=== PATIENT | female | born 1985 | race Caucasian/White ===

== ENCOUNTER 2021-12-26 12:20 | Observation (INO) ==
[2021-12-26] MEDS ORDERED: CeFAZolin Syr 2,000MG/20 ML 2,000 MG/20 ML SYRINGE IVPB ONE (12:53)
[2021-12-26] MEDS ORDERED: Ringers Solution, Lactated 1,000 ML IVC SCH (13:00)
[2021-12-26] MEDS ORDERED: Ondansetron 4 MG/2 ML VIAL IVP PRN ×2 (13:10→20:04)
[2021-12-26] MEDS ORDERED: *HR* HYDROmorphone PF 0.5 MG/0.5 ML SYRINGE IVP PRN (13:10)
[2021-12-26] MEDS ORDERED: *HR* OxyCODONE Immed Rel 5 MG TABLET PO PRN (13:10)
[2021-12-26] MEDS ORDERED: *HR* Succinylcholine 200 MG/10 ML VIAL IVP ONE (14:47)
[2021-12-26] MEDS ORDERED: *HR* Propofol 200 MG/20 ML VIAL IVP ONE (14:47)
[2021-12-26] MEDS ORDERED: Lidocaine -MPF 2% 5 ML VIAL ONE (14:47)
[2021-12-26] MEDS ORDERED: *HR* Midazolam HCl 2 MG/2 ML VIAL ONE (14:47)
[2021-12-26] MEDS ORDERED: *HR* FentaNYL (PF) 100 MCG/2 ML VIAL ONE (14:47)
[2021-12-26] MEDS ORDERED: *HR* Rocuronium Bromide 50 MG/5 ML VIAL ONE ×2 (14:47→17:03)
[2021-12-26] MEDS ORDERED: *HR* Phenylephrine 10 MG/ML VIAL ONE (14:57)
[2021-12-26] MEDS ORDERED: Ondansetron 4 MG/2 ML VIAL ONE (17:56)
[2021-12-26] MEDS ORDERED: *HR* HYDROMORPHONE 2 MG/ML VIAL ONE (18:07)
[2021-12-26] MEDS ORDERED: methocarbamoL 500 MG TABLET PO PRN (20:04)
[2021-12-26] MEDS ORDERED: 0.9 % Sodium Chloride 1,000 ML IVC SCH (20:04)
[2021-12-26] MEDS ORDERED: *HR* OxyCODONE/APAP 5/325 TABLET PO PRN (20:04)
[2021-12-26] MEDS ORDERED: Naloxone 0.4 MG/ML INJ IVP PRN (20:04)
[2021-12-26] MEDS: *HR* OxyCODONE/APAP 10/325 TABLET PO PRN (21:32)
[2021-12-27 05:13] LABS: Basophils % 0.1 %; Eosinophils % 0.2 %; Hematocrit 34.9 % (35.3-44.9); Hemoglobin 11.6 g/dL (11.5-15.4); Lymphocytes # 0.3 K/mcL (0.6-4.6); Lymphocytes % 1.5 %; Mean Corpuscular HGB Conc 33.2 g/dL (31.6-35.5); Mean Corpuscular Hemoglobin 30.6 pg (28.0-33.3); Mean Corpuscular Volume 92.1 fL (83.0-100.0); Mean Platelet Volume 9.7 fL (9.4-12.4); Monocytes # 0.8 K/mcL (0.0-1.3); Monocytes % 3.7 %; Neutrophils # 20.5 K/mcL (1.6-8.9); Platelet Count 309 K/mcL (140-400); Red Blood Count 3.79 M/mcL (3.82-4.97); Red Cell Distribution Width 11.5 % (11.5-14.5); Segmented Neutrophils % 93.5 %; White Blood Count 21.9 K/mcL (4.3-11.1)
[2021-12-27 05:35] LABS: BUN/Creatinine Ratio 11 (6-26); Blood Urea Nitrogen 9 mg/dL (6-20); Calcium 8.5 mg/dL (8.6-10.3); Carbon Dioxide 25 mEq/L (23-29); Chloride 103 mEq/L (98-107); Glucose 134 mg/dL (70-105); Osmolality,Calculated 281 (280-300); Potassium 4.2 mEq/L (3.5-5.1); Sodium 135 mEq/L (136-145); eGFR For African Americans > 60 (> 60); eGFR For Non-African Americans > 60 (> 60)
[2021-12-27 06:16] LABS: Basophils % 0.1 %; Red Blood Count 3.93 M/mcL (3.82-4.97)
[2021-12-27 06:17] LABS: Eosinophils % 0.2 %; Immature Granulocytes % 1.5 % (0-4); Lymphocytes # 0.4 K/mcL (0.6-4.6); Lymphocytes % 1.7 %; Mean Corpuscular HGB Conc 33.3 g/dL (31.6-35.5); Mean Corpuscular Hemoglobin 30.5 pg (28.0-33.3); Mean Corpuscular Volume 91.6 fL (83.0-100.0); Mean Platelet Volume 9.5 fL (9.4-12.4); Platelet Count 334 K/mcL (140-400); Red Cell Distribution Width 11.5 % (11.5-14.5); Segmented Neutrophils % 92.5 %; White Blood Count 25.5 K/mcL (4.3-11.1)
[2021-12-27 06:29] LABS: Eosinophils # 0.1 K/mcL (0.0-0.6); Neutrophils # 23.6 K/mcL (1.6-8.9)
[2021-12-27] MEDS: Ketorolac 30 MG/ML VIAL IVP SCH ×4 (06:30→23:52)
[2021-12-27 06:32] LABS: BUN/Creatinine Ratio 11 (6-26); Blood Urea Nitrogen 9 mg/dL (6-20); Calcium 8.6 mg/dL (8.6-10.3); Carbon Dioxide 25 mEq/L (23-29); Chloride 102 mEq/L (98-107); Glucose 142 mg/dL (70-105); Osmolality,Calculated 281 (280-300); Potassium 4.2 mEq/L (3.5-5.1); Sodium 135 mEq/L (136-145); eGFR For African Americans > 60 (> 60); eGFR For Non-African Americans > 60 (> 60)
[2021-12-27 06:33] LABS: Platelet Estimate Normal (Normal)
[2021-12-27] MEDS ORDERED: GuaiFENesin/Dextromethorphan TABLET PO PRN (07:08)
[2021-12-27] MEDS: Baclofen 10 MG TABLET PO SCH ×3 (10:04→20:30)
[2021-12-27] MEDS: Pregabalin 25 MG CAPSULE PO SCH ×3 (10:04→20:30)
[2021-12-27] MEDS: Pantoprazole 40 MG VIAL IVP SCH (10:05)
[2021-12-27] MEDS: *HR* OxyCODONE/APAP 10/325 TABLET PO PRN ×2 (13:30→20:29)
[2021-12-27] MEDS: *HR* Heparin 5,000 UNIT/ML VIAL SQ SCH (17:33)
[2021-12-27] MEDS ORDERED: 0.9 % Sodium Chloride 1,000 ML IVC SCH (18:00)
[2021-12-28 03:29] LABS: Basophils % 0.1 %; Eosinophils # 0.5 K/mcL (0.0-0.6); Eosinophils % 3.1 %; Hematocrit 35.4 % (35.3-44.9); Hemoglobin 11.5 g/dL (11.5-15.4); Immature Granulocytes % 0.9 % (0-4); Lymphocytes # 1.1 K/mcL (0.6-4.6); Lymphocytes % 6.6 %; Mean Corpuscular HGB Conc 32.5 g/dL (31.6-35.5); Mean Corpuscular Hemoglobin 30.7 pg (28.0-33.3); Mean Corpuscular Volume 94.7 fL (83.0-100.0); Mean Platelet Volume 9.8 fL (9.4-12.4); Monocytes # 0.7 K/mcL (0.0-1.3); Monocytes % 4.5 %; Neutrophils # 14.1 K/mcL (1.6-8.9); Platelet Count 316 K/mcL (140-400); Red Blood Count 3.74 M/mcL (3.82-4.97); Red Cell Distribution Width 11.9 % (11.5-14.5); Segmented Neutrophils % 84.8 %; White Blood Count 16.6 K/mcL (4.3-11.1)
[2021-12-28 03:52] LABS: BUN/Creatinine Ratio 10 (6-26); Blood Urea Nitrogen 9 mg/dL (6-20); Calcium 8.3 mg/dL (8.6-10.3); Carbon Dioxide 29 mEq/L (23-29); Chloride 105 mEq/L (98-107); Glucose 114 mg/dL (70-105); Osmolality,Calculated 290 (280-300); Potassium 3.5 mEq/L (3.5-5.1); Sodium 140 mEq/L (136-145); eGFR For African Americans > 60 (> 60); eGFR For Non-African Americans > 60 (> 60)
[2021-12-28] MEDS: Ketorolac 30 MG/ML VIAL IVP SCH (05:27)
[2021-12-28] MEDS: *HR* Heparin 5,000 UNIT/ML VIAL SQ SCH (05:29)
[2021-12-28] MEDS: Baclofen 10 MG TABLET PO SCH (08:44)
[2021-12-28] MEDS: Pregabalin 25 MG CAPSULE PO SCH (08:44)
[2021-12-28] MEDS: Pantoprazole 40 MG VIAL IVP SCH (08:49)
[2021-12-28 10:28] VITALS: BP 102/67; PULSE 82; TEMP 98; O2SAT 95
== END 2021-12-28 14:36 | disposition home or self-care (01) ==
LOC: 3ANU 12:20 → SAMDAY 12:20 → 3ANU 19:53
PROVIDERS: ADMIT Nurse Practitioner Family; ATTEND Surgery